=== PATIENT | female | born 2000 | race Caucasian/White ===

== ENCOUNTER 2022-09-21 01:27 | Emergency (ER) | payer OTHER, SELFPAY ==
[2022-09-21 01:32] VITALS: BP 98/53; PULSE 110; RESP 14; TEMP 35.6; O2SAT 100
--- NOTE | 2022-09-21 01:52 | ED_ITS ---
HPI - General Adult General Chief complaint: Alcohol/Intoxication Stated complaint: ETOH Time Seen by Provider: 09/21/22 01:30 Source: patient and EMS Mode of arrival: ambulatory History of Present Illness HPI narrative: 21-year-old female presents to the emergency department by EMS. She is mildly intoxicated. She reports that she was drinking to kill this evening. Did vomit. The RA overheard multiple people drinking and called EMS on her because they were unsure if she would be able to care for herself. She can not answer questions completely appropriately. She is able to do so for EMS as well. EMS did administer oral Zofran, she has had no further vomiting. She reports that she was feeling normal prior to drinking today. No fever, no trauma or falls. She denies use of any other intoxicating agents, marijuana, street drugs, etc.. She denies chance of . Denies intentional harm from drinking. She has no acute concerns and is able to answer questions very appropriately. She states that she has no long-term health problems, takes no prescription medicines, has had no surgeries. No allergies. ROS is completely negative times 12 systems with the exception of some mild nausea which she states is now improving. Related Data Allergies Allergy/AdvReac Type Severity Reaction Status Date / Time No Known Drug Allergies Allergy Verified 09/21/22 01:32 [facility] Social History Smoking Status: Unknown if ever smoked How often do you have a drink containing alcohol: 2-4 times a month AUDIT-C Alcohol total score: 2 Non-prescribed substance use: denies use Exam Const: Vital Signs, click to edit/add: Vital Signs - 24 hr 09/21/22 01:32 Temperature 96.1 F L Pulse Rate [Left P ulse Oximeter] 110 H Respiratory Rate 14 Blood Pressure [Ri ght Upper Arm] 98/53 L Pulse Oximetry 100 Oxygen Delivery Me thod Room Air Documenting provider has reviewed patient's vital signs: yes Common normals: no apparent distress and alert General appearance: cooperative, comfortable and well kempt Other: Answers questions perfectly appropriately, mild intoxication only. Follows commands. HENMT: Common normals: normocephalic Head and scalp: normocephalic Face and sinus: normal facial exam Mouth: oral and palatal mucosa normal Throat: posterior oropharynx normal Eye: Common normals: PERRL, EOMs intact bilaterally and conjunctivae normal Conjunctiva: conjunctiva(e) normal Pupil: PERRL Neck & C-Spine: Common normals: full ROM and no lymphadenopathy Resp: Common normals: normal respiratory effort, no use of accessory muscles and clear to auscultation bilaterally Effort & inspection: able to speak in complete sentences Auscultation: clear to auscultation bilaterally Cardio: Common normals: regular rate, regular rhythm, S1 normal heart sound, S2 normal heart sound and no murmurs Rate: regular rate Rhythm: regular rhythm Heart sounds: S1 normal and S2 normal Extremity: Common normals: normal to inspection, normal capillary refill and no pedal edema Neuro: Common normals: moves all extremities and no focal motor deficits Sensorium/orientation: alert Speech: speech normal Psych: Appearance: well kempt Activity/motor behavior: appropriate eye contact Mood and affect: euthymic mood Insight: insight good Judgement: judgment good Skin: Common normals: no rashes or lesions noted Narrative: No signs of self-injury or assault General skin exam: no rashes or lesions noted Course Vital Signs Vital signs: Initial Vital Signs Temperature 96.1 F L 09/21/22 01:32 Temperature Source Temporal Artery Scan 09/21/22 01:32 Pulse Rate 110 H 09/21/22 01:32 Pulse Rhythm Regular 09/21/22 01:32 Respiratory Rate 14 09/21/22 01:32 Blood Pressure 98/53 L 09/21/22 01:32 Blood Pressure Mean 68 L 09/21/22 01:32 Blood Pressure Position Semi-Fowlers 09/21/22 01:32 Pulse Oximetry 100 09/21/22 01:32 Oxygen Delivery Method Room Air 09/21/22 01:32 Vital Signs Temperature 96.1 F L 09/21/22 01:32 Pulse Rate 110 H 09/21/22 01:32 Respiratory Rate 14 09/21/22 01:32 Blood Pressure 98/53 L 09/21/22 01:32 Pulse Oximetry 100 09/21/22 01:32 Oxygen Delivery Method Room Air 09/21/22 01:32 Temperature 96.1 F L 09/21/22 01:32 Pulse Rate 110 H 09/21/22 01:32 Respiratory Rate 14 09/21/22 01:32 Blood Pressure 98/53 L 09/21/22 01:32 Pulse Oximetry 100 09/21/22 01:32 Oxygen Delivery Method Room Air 09/21/22 01:32 Medical Decision Making MDM Narrative Medical decision making narrative: Mild under 8 alcohol intoxication, no signs of severe impairment. Protecting her airway well. Medically able for discharge. Discharge Plan Discharge Clinical Impression: Alcoholic intoxication Patient Disposition: Home w/ Parent or Adult Condition: Improved Instructions: Alcohol Intoxication (DC) Additional Instructions: As we discussed there are no signs of severe intoxication. Your protecting her airway normally and have no signs of compromise from alcohol. Your likely to have symptoms of mild hangover. Drink plenty of fluids today, take Tylenol if needed for headache or body ache. If your alcohol drinking is problematic, please speak with someone at [facility]. Activity Level: No Restrictions Discharge Diet: Regular Stand Alone Forms: [employer] Info Instructions
--- NOTE | 2022-09-21 02:32 | ED.NURSE ---
patient able to ambulate independently. patient steady on her feet. Patient states that she feels safe to go home and care for herself.
== END 2022-09-21 02:47 | disposition home or self-care (01) ==
LOC: ED 02:43
PROVIDERS: Emergency Provider Family Medicine
DX: S83.92XA Sprain of unspecified site of left knee, initial encounter (principal); W01.0XXA Fall on same level from slipping, tripping and stumbling without subsequent striking against object, initial encounter
CPT/HCPCS: 99282; 99283; A0425; A0429